=== PATIENT | female | born 1990 | race Caucasian/White ===

== ENCOUNTER 2016-10-03 10:19 | Emergency (ER) | payer OTHER ==
[2016-10-03 10:31] VITALS: RESP 16; TEMP 97.9
--- NOTE | 2016-10-03 12:01 | EDPHY ---
H & P Stated Complaint: back pain Time Seen by Provider: 10/03/16 11:31 HPI/ROS: Chief Complaint: Back pain HPI: 26-year-old woman with a history of chronic back pain has been having worsening exacerbation for the last month. Yesterday had symptoms of food poisoning with vomiting all vomiting felt a spasm in a pull in her back. Woke up this morning very stiff and was difficulty walking. She has had physical therapy in the past which has helped. She is also works with systems trainer morphine core exercises. She did take 2 Advil pills this morning but only takes it sporadically. No new numbness or weakness. No difficulty urinating. No fevers or chills. ROS: 10 point Review of Systems is negative except as noted in the HPI. PMH: Back pain, depression Medications: Wellbutrin Social History: No smoking, no alcohol, no recreational drug use Family History: non-contributory Physical Exam: Gen: Awake, Alert, No Distress HEENT: Nose: no rhinorrhea Eyes: PERRLA, EOMI Mouth: Moist mucosa Neck: Supple, no JVD Chest: nontender, lungs clear to auscultation Heart: S1, S2 normal, no murmur Abd: Soft, non-tender, no guarding Back: no CVA tenderness, no midline tenderness mild bilateral some spasm Ext: no edema, non-tender Skin: no rash Neuro: CN II-XII intact, Sensation grossly intact, Strength 5/5 in bilateral upper and lower extremities - Personal History LMP (Females 10-55): IUD In Place Current Tetanus/Diphtheria Vaccine: Yes - Medical/Surgical History Hx Asthma: No Hx Chronic Respiratory Disease: No Hx Diabetes: No Hx Cardiac Disease: No Hx Renal Disease: No Hx Cirrhosis: No Hx Alcoholism: No Hx HIV/AIDS: No Hx Splenectomy or Spleen Trauma: No Other PMH: back pain - Social History Smoking Status: Never smoked Constitutional: Initial Vital Signs Temperature (C) 36.6 C 10/03/16 10:28 Heart Rate 96 10/03/16 10:28 Respiratory Rate 16 10/03/16 10:28 Blood Pressure 136/86 H 10/03/16 10:28 O2 Sat (%) 95 10/03/16 10:28 O2 Delivery Mode Room Air Allergies/Adverse Reactions: No Known Allergies Allergy (Unverified 10/03/16 10:27) Home Medications: Medication Instructions Recorded NK [No Known Home Meds] 10/03/16 Wellbutrin Sr 10/03/16 Medical Decision Making ED Course/Re-evaluation: 26-year-old with exacerbation of chronic back pain. She has no red flags for cauda equina or infectious process. She is completely neurologically intact. She is not adequately been taking anti-inflammatories. I will recommend regular course of anti-inflammatories, ice, back exercises and follow up with primary care physician for possible future PT. Departure - Departure Disposition: Home, Routine, Self-Care Clinical Impression: Back pain Condition: Good Instructions: Back Pain (ED), Lower Back Exercises (ED) Additional Instructions: Take 600 mg of ibuprofen 3 times a day. Apply ice for 15 minutes of every hour while awake for the next 48 hours. Do not laying in bed. Stay active but do not overly exerts yourself. Follow up with your primary care physician in 3-4 days if symptoms are not improving. Referrals: Mirta Teixeira MD [Primary Care Provider] - As per Instructions
[2016-10-03 12:11] VITALS: BP 128/82; PULSE 94; O2SAT 96
== END 2016-10-03 12:11 | disposition home or self-care (01) ==
DX: M54.9 Dorsalgia, unspecified (principal)